=== PATIENT | female | born 1925 | race Caucasian/White ===

== ENCOUNTER → 2016-07-30 | Outpatient (CLI) | payer OTHER | LOC: BMCIMAGING 12:46 | PROVIDERS: ATTEND Internal Medicine | DX: Z12.31 Encounter for screening mammogram for malignant neoplasm of breast (principal); Z85.3 Personal history of malignant neoplasm of breast | CPT/HCPCS: G0202 ==

== ENCOUNTER → 2016-10-20 | Outpatient (CLI) | payer OTHER | LOC: BMCIMAGING 13:54 | PROVIDERS: ATTEND Internal Medicine Endocrinology, Diabetes & Metabolism | DX: Z13.820 Encounter for screening for osteoporosis (principal); M81.0 Age-related osteoporosis without current pathological fracture; E21.3 Hyperparathyroidism, unspecified ==

== ENCOUNTER 2017-07-20 11:24 | Emergency (ER) | payer OTHER ==
[2017-07-20 12:28] LABS: PLATELET COUNT 208 10^3/uL (150-400)
[2017-07-20] MEDS ORDERED: NS 1,000 ML IV ONE (12:53)
[2017-07-20] MEDS ORDERED: FAMOTIDINE 20 MG/NACL 50 ML IV ONE (12:53)
--- NOTE | 2017-07-20 12:57 | EDPHY ---
H & P Stated Complaint: blood in stool Time Seen by Provider: 07/20/17 12:47 HPI/ROS: CHIEF COMPLAINT: Rectal bleed HISTORY OF PRESENT ILLNESS: Patient is an 89-year-old female who comes to the emergency department complaining of bright red blood per rectum today. She states that she had something similar last week when she was in [place]. She has a history of irritable bowel as well as a normal colonoscopy in 2011. Her gastrologist has since retired. She states that last week when she was in [place] she got out of the car because she thought she had diarrhea and. She felt lightheaded and fainted. She was taken the hospital and found to have a GI bleed with a hemoglobin of 9. They were making plans for colonoscopy but then she states her hemoglobin improved and she was allowed to go home. She did not receive transfusions. She has felt well until today which she noticed watery red stool again. She has no history of hemorrhoids or ulcers. She does not drink heavily. No vomiting or nausea or abdominal pain. No fevers. REVIEW OF SYSTEMS: Constitutional: denies: chills, fever, recent illness, recent injury EENTM: denies: blurred vision, double vision, nose congestion Respiratory: denies: cough, shortness of breath Cardiac: denies: chest pain, irregular heart rate, lightheadedness, palpitations Gastrointestinal/Abdominal: See HPI Genitourinary: denies: dysuria, frequency, hematuria, pain Musculoskeletal: denies: joint pain, muscle pain Skin: denies: lesions, rash, jaundice, bruising Neurological: denies: headache, numbness, paresthesia, tingling, dizziness, weakness Hematologic/Lymphatic: denies: blood clots, easy bleeding, easy bruising Immunologic/allergic: denies: HIV/AIDS, transplant EXAM: GENERAL: Well-appearing, well-nourished and in no acute distress. HEAD: Atraumatic, normocephalic. EYES: Pupils equal round and reactive to light, extraocular movements intact, sclera anicteric, conjunctiva are normal. ENT: TMs normal, nares patent, oropharynx clear without exudates. Moist mucous membranes. NECK: Normal range of motion, supple without lymphadenopathy or JVD. LUNGS: Breath sounds clear to auscultation bilaterally and equal. No wheezes rales or rhonchi. HEART: Regular rate and rhythm without murmurs, rubs or gallops. ABDOMEN: Soft, nontender, normoactive bowel sounds. No guarding, no rebound. No masses appreciated. Rectal: Brown stool on digital exam, small hemorrhoid versus skin tag at 12 o' clock not bleeding. Not tender. BACK: No CVA tenderness, no spinal tenderness, step-offs or deformities EXTREMITIES: Normal range of motion, no pitting or edema. No clubbing or cyanosis. NEUROLOGICAL: Cranial nerves II through XII grossly intact. Normal speech, normal gait. 5/5 strength, normal movement in all extremities, normal sensation PSYCH: Normal mood, normal affect. SKIN: Warm, dry, normal turgor, no visible rashes or lesions. Source: Patient Exam Limitations: No limitations - Medical/Surgical History Hx Asthma: No Hx Chronic Respiratory Disease: No Hx Diabetes: No Hx Cardiac Disease: No Hx Renal Disease: Yes Hx Cirrhosis: No Hx Alcoholism: No Hx HIV/AIDS: No Other PMH: tonsilectomy, 5 R knee operations, Bladder, Hysterectomy/oophorectomy , cataracts both eyes, R breast lumpectomy, total hip, L breast partial mastectomy, basal cell carcinoma. - Family History Significant Family History: No pertinent family hx - Social History Smoking Status: Never smoked Alcohol Use: Sober Drug Use: None Constitutional: Initial Vital Signs Temperature (C) 36.8 C 07/20/17 11:46 Heart Rate 78 07/20/17 11:46 Respiratory Rate 18 07/20/17 11:46 Blood Pressure 165/89 H 07/20/17 11:46 O2 Sat (%) 95 07/20/17 11:46 O2 Delivery Mode Room Air Allergies/Adverse Reactions: No Known Allergies Allergy (Unverified 07/20/17 11:45) Home Medications: Medication Instructions Recorded Hydrocodone Bit/Acetaminophen 1 - 2 tab PO Q4-6PRN PRN #11 tab 06/18/11 [Vicodin 5/500] Oxybutynin Chloride [Oxybutynin 10 mg PO 06/18/11 Chloride Er] oxyCODONE/APAP 5/325 [Percocet 1 - 2 tab PO Q4-6PRN PRN #15 tab 06/19/11 5/325] Famotidine [Pepcid 20 MG (OTC)] 20 mg PO BID #30 tab 07/20/17 Folic Acid 07/20/17 Fosamax 70 MG (*) 07/20/17 Lisinopril 07/20/17 Medical Decision Making ED Course/Re-evaluation: 1:40 p.m. the patient is feeling well. We discussed her lab work. Her Hemoccult is negative. Her vital signs have been stable. I offered admission and possibly colonoscopy but at this point she declined. Her hemoglobin she states is improved from a week ago. She would prefer to follow up as an outpatient. I agree that considering her current appearance this is a viable option. I encouraged her to return to the emergency department if the bleeding returned or if she began vomiting blood or had any black stool. She understands and agrees with this plan. Differential Diagnosis: Partial list of the Differential diagnosis considered include but were not limited to; hemorrhoid, lower GI bleed, upper GI bleed, anemia and although unlikely based on the history and physical exam, I also considered hemorrhage, cardiac disease, cancer. I discussed these differential diagnoses and the plan with the patient as well as the usual and expected course. The patient understands that the diagnosis is provisional and that in medicine we are not always correct and that further workup is often warranted. Usual and customary warnings were given. All of the patient's questions were answered. The patient was instructed to return to the emergency department should the symptoms at all worsen or return, otherwise to followup with the physician as we discussed. - Data Points Laboratory Results: Laboratory Results 07/20/17 12:00 07/20/17 12:00 07/20/17 07/20/17 07/20/17 12:57 12:00 12:00 WBC RBC Hgb Hct MCV MCH MCHC RDW Plt Count MPV Neut % (Auto) Lymph % (Auto) Throckmorton % (Auto) Eos % (Auto) Baso % (Auto) Nucleat RBC Rel Count Absolute Neuts (auto) Absolute Lymphs (auto) Absolute Monos (auto) Absolute Eos (auto) Absolute Basos (auto) Absolute Nucleated RBC Immature Gran % Immature Gran # PT 13.1 SEC SEC (12.0-15.0) INR 0.97 (0.83-1.16) APTT 25.3 SEC SEC (23.0-38.0) Sodium Potassium Chloride Carbon Dioxide Anion Gap BUN Creatinine Estimated GFR Glucose Calcium Total Bilirubin 0.4 mg/dL mg/dL (0.1-1.4) Conjugated Bilirubin 0.4 mg/dL mg/dL (0.0-0.5) Unconjugated Bilirubin 0.0 mg/dL mg/dL (0.0-1.1) AST 30 IU/L IU/L (14-46) ALT 38 IU/L IU/L (9-52) Alkaline Phosphatase 48 IU/L IU/L (38-126) Total Protein 6.8 g/dL g/dL (6.3-8.2) Albumin 4.1 g/dL g/dL (3.5-5.0) Lipase 153 IU/L IU/L (23-300) Stool Occult Bld Scrn NEGATIVE (NEGATIVE) 07/20/17 07/20/17 12:00 12:00 WBC 6.65 10^3/uL 10^3/uL (3.80-9.50) RBC 3.59 10^6/uL L 10^6/uL (4.18-5.33) Hgb 10.8 g/dL L g/dL (12.6-16.3) Hct 32.8 % L % (38.0-47.0) MCV 91.4 fL fL (81.5-99.8) MCH 30.1 pg pg (27.9-34.1) MCHC 32.9 g/dL g/dL (32.4-36.7) RDW 12.8 % % (11.5-15.2) Plt Count 208 10^3/uL 10^3/uL (150-400) MPV 9.5 fL fL (8.7-11.7) Neut % (Auto) 71.4 % % (39.3-74.2) Lymph % (Auto) 14.4 % L % (15.0-45.0) Throckmorton % (Auto) 9.3 % % (4.5-13.0) Eos % (Auto) 3.2 % % (0.6-7.6) Baso % (Auto) 0.5 % % (0.3-1.7) Nucleat RBC Rel Count 0.0 % % (0.0-0.2) Absolute Neuts (auto) 4.75 10^3/uL 10^3/uL (1.70-6.50) Absolute Lymphs (auto) 0.96 10^3/uL L 10^3/uL (1.00-3.00) Absolute Monos (auto) 0.62 10^3/uL 10^3/uL (0.30-0.80) Absolute Eos (auto) 0.21 10^3/uL 10^3/uL (0.03-0.40) Absolute Basos (auto) 0.03 10^3/uL 10^3/uL (0.02-0.10) Absolute Nucleated RBC 0.00 10^3/uL 10^3/uL (0-0.01) Immature Gran % 1.2 % H % (0.0-1.1) Immature Gran # 0.08 10^3/uL 10^3/uL (0.00-0.10) PT INR APTT Sodium 143 mEq/L mEq/L (135-145) Potassium 4.7 mEq/L mEq/L (3.3-5.0) Chloride 108 mEq/L mEq/L (97-110) Carbon Dioxide 21 mEq/l L mEq/l (22-31) Anion Gap 14 mEq/L mEq/L (8-16) BUN 16 mg/dL mg/dL (7-23) Creatinine 1.0 mg/dL mg/dL (0.6-1.0) Estimated GFR 52 Glucose 94 mg/dL mg/dL (70-100) Calcium 10.3 mg/dL mg/dL (8.5-10.4) Total Bilirubin 0.4 mg/dL mg/dL (0.1-1.4) Conjugated Bilirubin Unconjugated Bilirubin AST 30 IU/L IU/L (14-46) ALT 47 IU/L IU/L (9-52) Alkaline Phosphatase 49 IU/L IU/L (38-126) Total Protein 6.8 g/dL g/dL (6.3-8.2) Albumin 4.1 g/dL g/dL (3.5-5.0) Lipase Stool Occult Bld Scrn Medications Given: Discontinued Medications Sodium Chloride (Ns) 1,000 mls @ 0 mls/hr IV EDNOW ONE; Wide Open PRN Reason: Protocol Stop: 07/20/17 12:54 Last Admin: 07/20/17 12:59 Dose: 1,000 mls Famotidine/Sodium Chloride (Pepcid 20 Mg (Premix)) 50 mls @ 200 mls/hr IV EDNOW ONE Stop: 07/20/17 13:07 Last Admin: 07/20/17 13:00 Dose: 50 mls Departure - Departure Disposition: Home, Routine, Self-Care Clinical Impression: Bright red blood per rectum Anemia Qualifiers: Anemia type: unspecified type Qualified Code(s): D64.9 - Anemia, unspecified Condition: Fair Instructions: Gastrointestinal Bleeding (ED), Anemia (ED) Referrals: Kerline Pastor MD [Primary Care Provider] - As per Instructions Avery Saleh MD [Medical Doctor] - As per Instructions Prescriptions: Famotidine [Pepcid 20 MG (OTC)] 20 mg PO BID #30 tab
[2017-07-20 13:11] LABS: INR 0.97 (0.83-1.16); PROTIME(PATIENT) 13.1 SEC (12.0-15.0)
[2017-07-20 14:16] VITALS: BP 168/80
== END 2017-07-20 14:24 | disposition home or self-care (01) ==
DX: K62.5 Hemorrhage of anus and rectum (principal); D64.9 Anemia, unspecified; E86.9 Volume depletion, unspecified
CPT/HCPCS: 96374

== ENCOUNTER → 2017-08-02 | Outpatient (CLI) | payer OTHER | LOC: BMCIMAGING 14:53 | PROVIDERS: ATTEND Internal Medicine | DX: Z12.31 Encounter for screening mammogram for malignant neoplasm of breast (principal); Z85.3 Personal history of malignant neoplasm of breast ==

== ENCOUNTER 2017-08-24 01:51 | Inpatient (IN) | payer OTHER ==
[2017-08-24] MEDS ORDERED: DEXAMETHASONE 10 MG/ML VIAL IVP ONE (02:32)
--- NOTE | 2017-08-24 02:48 | EDPHY ---
H & P Stated Complaint: allergic reaction to meds- blisters on tongue, petechia on stephanie legs Time Seen by Provider: 08/24/17 02:13 HPI/ROS: HPI The patient presents with oral mucosal rash and rash on her legs. She started taking Bactrim for urinary tract infection 2 days ago and has taken a total of 3 doses. Yesterday at noon she noticed some pain on her right buccal mucosa. She thought she may have bit her tongue, however she has developed multiple other oral lesions since then which are painful. Then, while lying in bed, she noticed a rash on her shins which is nonpainful and non. Arnold. She decided to come in. She does not have any shortness of breath, difficulty swallowing.. REVIEW OF SYSTEMS Constitutional: No fever, no chills. Eyes: No discharge. ENT: No sore throat. Cardiovascular: No chest pain, no palpitations. Respiratory: No cough, no shortness of breath. Gastrointestinal: No abdominal pain, no vomiting. Genitourinary: No hematuria. Musculoskeletal: No back pain. Skin: No rashes. Neurological: No headache. PMHx: Urinary tract infection currently Soc Hx: Here with her PHYSICAL General Appearance: Alert, no distress Eyes: Pupils equal and round no pallor or injection ENT, Mouth: Multiple dark red bullae are present with no active bleeding throughout her oral mucosa, posterior pharynx is unremarkable Respiratory: There are no retractions, lungs are clear to auscultation Cardiovascular: Regular rate and rhythm Gastrointestinal: Abdomen is soft and non-tender, no masses, bowel sounds normal Neurological: A&O, moves all extremities Skin: Warm and dry, petechiae present throughout her shins Musculoskeletal: Neck is supple non tender Extremities: symmetrical, full range of motion Psychiatric: Patient is oriented X 3, there is no agitation Source: Patient Exam Limitations: No limitations - Medical/Surgical History Hx Asthma: No Hx Chronic Respiratory Disease: No Hx Diabetes: No Hx Cardiac Disease: No Hx Renal Disease: Yes Hx Cirrhosis: No Hx Alcoholism: No Hx HIV/AIDS: No Other PMH: tonsilectomy, 5 R knee operations, Bladder, Hysterectomy/oophorectomy , cataracts both eyes, R breast lumpectomy, total hip, L breast partial mastectomy, basal cell carcinoma. - Social History Smoking Status: Never smoked Constitutional: Initial Vital Signs Temperature (C) 36.4 C 06/20/18 01:55 Heart Rate 73 08/24/17 01:55 Respiratory Rate 20 08/24/17 01:55 Blood Pressure 135/56 H 08/24/17 01:55 O2 Sat (%) 98 08/24/17 01:55 Allergies/Adverse Reactions: No Known Allergies Allergy (Unverified 08/24/17 01:54) Home Medications: Medication Instructions Recorded Hydrocodone Bit/Acetaminophen 1 - 2 tab PO Q4-6PRN PRN #11 tab 06/18/11 [Vicodin 5/500] Oxybutynin Chloride [Oxybutynin 10 mg PO 06/18/11 Chloride Er] oxyCODONE/APAP 5/325 [Percocet 1 - 2 tab PO Q4-6PRN PRN #15 tab 06/19/11 5/325] Famotidine [Pepcid 20 MG (OTC)] 20 mg PO BID #30 tab 07/20/17 Folic Acid 07/20/17 Fosamax 70 MG (*) 07/20/17 Lisinopril 07/20/17 Medical Decision Making Differential Diagnosis: 89-year-old female currently being treated for UTI with Bactrim for the last 1.5 days presents with oral mucosal lesions as well as petechiae of her lower extremities. Differential diagnosis includes drug-induced ITP, erythema multiforme, Kang- Ernesto syndrome, secondary vasculitis related to Bactrim use. In the emergency department, patient given a dose of Decadron for presumed erythema multiforme. Labs are checked. 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 The patient does not have any signs of serious bleeding such is abdominal pain, headache, melena. Thus, I do not believe she needs a platelet transfusion currently. However, given rapid onset of her symptoms, and severity of her thrombocytopenia, I do feel she should be admitted to the hospital. I consulted with Dr. Valencia and we plan to admit the patient to the hospital. I consulted with the on-call nutrition services aide oncologist Dr. Morgan. He recommends prednisone 1 milligram/kilogram and initiation of IVIG 400 milligrams/kilogram. The patient was given Decadron earlier in her ED stay 10 mg, thus I will not start her on prednisone right now. IVIG has been ordered. - Data Points Laboratory Results: Laboratory Results 08/24/17 02:46 08/24/17 02:46 08/24/17 08/24/17 08/24/17 03:40 02:46 02:46 WBC 5.03 10^3/uL 10^3/uL (3.80-9.50) RBC 3.37 10^6/uL L 10^6/uL (4.18-5.33) Hgb 10.2 g/dL L g/dL (12.6-16.3) Hct 31.7 % L % (38.0-47.0) MCV 94.1 fL fL (81.5-99.8) MCH 30.3 pg pg (27.9-34.1) MCHC 32.2 g/dL L g/dL (32.4-36.7) RDW 13.1 % % (11.5-15.2) Plt Count < 3 10^3/uL L* 10^3/uL (150-400) MPV 14.2 fL H fL (8.7-11.7) Neut % (Auto) 72.4 % % (39.3-74.2) Lymph % (Auto) 14.3 % L % (15.0-45.0) Perkins % (Auto) 9.7 % % (4.5-13.0) Eos % (Auto) 2.8 % % (0.6-7.6) Baso % (Auto) 0.6 % % (0.3-1.7) Nucleat RBC Rel Count 0.0 % % (0.0-0.2) Absolute Neuts (auto) 3.64 10^3/uL 10^3/uL (1.70-6.50) Absolute Lymphs (auto) 0.72 10^3/uL L 10^3/uL (1.00-3.00) Absolute Monos (auto) 0.49 10^3/uL 10^3/uL (0.30-0.80) Absolute Eos (auto) 0.14 10^3/uL 10^3/uL (0.03-0.40) Absolute Basos (auto) 0.03 10^3/uL 10^3/uL (0.02-0.10) Absolute Nucleated RBC 0.00 10^3/uL 10^3/uL (0-0.01) Immature Gran % 0.2 % % (0.0-1.1) Immature Gran # 0.01 10^3/uL 10^3/uL (0.00-0.10) Platelet Estimate DECREASED L (ADEQ) Smear Review By Pending Sodium 141 mEq/L mEq/L (135-145) Potassium 4.4 mEq/L mEq/L (3.3-5.0) Chloride 108 mEq/L mEq/L (97-110) Carbon Dioxide 19 mEq/l L mEq/l (22-31) Anion Gap 14 mEq/L mEq/L (8-16) BUN 29 mg/dL H mg/dL (7-23) Creatinine 1.4 mg/dL H mg/dL (0.6-1.0) Estimated GFR 35 Glucose 102 mg/dL H mg/dL (70-100) Calcium 10.0 mg/dL mg/dL (8.5-10.4) Total Bilirubin 0.4 mg/dL mg/dL (0.1-1.4) AST 26 IU/L IU/L (14-46) ALT 33 IU/L IU/L (9-52) Alkaline Phosphatase 48 IU/L IU/L (38-126) Total Protein 6.5 g/dL g/dL (6.3-8.2) Albumin 3.9 g/dL g/dL (3.5-5.0) Patient ABO/Rh A NEGATIVE Antibody Screen NEGATIVE Medications Given: Acetaminophen (Tylenol) 500 mg PO .ONCE PRE INFUSION OLIVER Stop: 02/20/18 04:14 Last Admin: 08/24/17 04:32 Dose: 500 mg Discontinued Medications Dexamethasone (Decadron Injection) 10 mg IVP EDNOW ONE Stop: 08/24/17 02:33 Last Admin: 08/24/17 02:44 Dose: 10 mg Immune Globulin (Privigen 20 Gm) 20 gm IV .ONCE AFTER PREMEDS ONE PRN Reason: Protocol Stop: 08/24/17 05:01 Last Admin: 08/24/17 05:30 Dose: 20 gm Departure - Departure Disposition: [facility] Inpatient Acute Clinical Impression: Thrombocytopenia, Petechiae, Oral hemorrhage Condition: Fair
[2017-08-24 03:28] LABS: PLATELET COUNT < 3 10^3/uL (150-400)
[2017-08-24] MEDS ORDERED: ONDANSETRON 4 MG/2 ML VIAL IVP PRN (03:48)
[2017-08-24] MEDS ORDERED: ONDANSETRON DISINTEGRATING 4 MG TAB PO PRN (03:48)
[2017-08-24] MEDS ORDERED: ACETAMINOPHEN 325 MG TAB PO PRN (03:48)
--- NOTE | 2017-08-24 04:08 | PDGENHP ---
History and Physical - Chief Complaint Petechiae - History of Present Illness 89 yo F w/ HTN and IBS presents with oral and lower extremity lesions. Patient has been under treatment for a UTI for more than a week. She was initially treated with Macrobid. She felt somewhat better but her infection was not cleared up. As a result she was started on Bactrim 2 days ago. This evening she noted blister like lesions in her mouth that appear to be blood filled. She then noted extensive petechiae on her LE's and came to the ED. In the ED CBC was notable for undetectable platelet count. She is being admitted for presumed drug induced thrombocytopenia. History Information - Allergies/Home Medication List Allergies/Adverse Reactions: No Known Allergies Allergy (Unverified 08/24/17 01:54) Home Medications: Oxybutynin Chloride [Oxybutynin Chloride Er] 10 mg PO 06/18/11 [Last Taken Unknown] Folic Acid 07/20/17 [Last Taken Unknown] Fosamax 70 MG (*) 07/20/17 [Last Taken Unknown] Lisinopril 07/20/17 [Last Taken Unknown] I have personally reviewed and updated: family history, medical history - Past Medical History hypertension Additional medical history: IBS - Surgical History Reports: hysterectomy Additional surgical history: B/L TKA. R DAVE - Family History Additional family history: Denies family hx of blood disorders - Social History Smoking Status: Never smoked Review of Systems Review of Systems: ROS: 10pt was reviewed & negative except for what was stated in HPI & below Physical Exam Physical Exam: Temp Pulse Resp BP Pulse Ox 36.4 C 80 16 152/72 H 94 08/24/17 01:58 08/24/17 03:58 08/24/17 03:58 08/24/17 03:58 08/24/17 03:58 Constitutional: no apparent distress, not in pain Eyes: PERRL, EOMI Ears, Nose, Mouth, Throat: moist mucous membranes, other (Blister like, blood filled/clot lesions on oral bucosa) Cardiovascular: regular rate and rhythym, no murmur, rub, or gallop Respiratory: no respiratory distress, no rales or rhonchi Gastrointestinal: normoactive bowel sounds, soft, non-tender abdomen Skin: warm, normal color Musculoskeletal: full muscle strength, no muscle tenderness Neurologic: AAOx3, CN II-XII Intact Psychiatric: interacting appropriately, not anxious Lab Data & Imaging Review 08/24/17 02:46 08/24/17 02:46 WBC 5.03 10^3/uL (3.80-9.50) 08/24/17 02:46 RBC 3.37 10^6/uL (4.18-5.33) L 08/24/17 02:46 Hgb 10.2 g/dL (12.6-16.3) L 08/24/17 02:46 Hct 31.7 % (38.0-47.0) L 08/24/17 02:46 MCV 94.1 fL (81.5-99.8) 08/24/17 02:46 MCH 30.3 pg (27.9-34.1) 08/24/17 02:46 MCHC 32.2 g/dL (32.4-36.7) L 08/24/17 02:46 RDW 13.1 % (11.5-15.2) 08/24/17 02:46 Plt Count < 3 10^3/uL (150-400) L* 08/24/17 02:46 MPV 14.2 fL (8.7-11.7) H 08/24/17 02:46 Neut % (Auto) 72.4 % (39.3-74.2) 08/24/17 02:46 Lymph % (Auto) 14.3 % (15.0-45.0) L 08/24/17 02:46 Cook % (Auto) 9.7 % (4.5-13.0) 08/24/17 02:46 Eos % (Auto) 2.8 % (0.6-7.6) 08/24/17 02:46 Baso % (Auto) 0.6 % (0.3-1.7) 08/24/17 02:46 Nucleat RBC Rel Count 0.0 % (0.0-0.2) 08/24/17 02:46 Absolute Neuts (auto) 3.64 10^3/uL (1.70-6.50) 08/24/17 02:46 Absolute Lymphs (auto) 0.72 10^3/uL (1.00-3.00) L 08/24/17 02:46 Absolute Monos (auto) 0.49 10^3/uL (0.30-0.80) 08/24/17 02:46 Absolute Eos (auto) 0.14 10^3/uL (0.03-0.40) 08/24/17 02:46 Absolute Basos (auto) 0.03 10^3/uL (0.02-0.10) 08/24/17 02:46 Absolute Nucleated RBC 0.00 10^3/uL (0-0.01) 08/24/17 02:46 Immature Gran % 0.2 % (0.0-1.1) 08/24/17 02:46 Immature Gran # 0.01 10^3/uL (0.00-0.10) 08/24/17 02:46 Platelet Estimate DECREASED (ADEQ) L 08/24/17 02:46 Sodium 141 mEq/L (135-145) 08/24/17 02:46 Potassium 4.4 mEq/L (3.3-5.0) 08/24/17 02:46 Chloride 108 mEq/L (97-110) 08/24/17 02:46 Carbon Dioxide 19 mEq/l (22-31) L 08/24/17 02:46 Anion Gap 14 mEq/L (8-16) 08/24/17 02:46 BUN 29 mg/dL (7-23) H 08/24/17 02:46 Creatinine 1.4 mg/dL (0.6-1.0) H 08/24/17 02:46 Estimated GFR 35 08/24/17 02:46 Glucose 102 mg/dL (70-100) H 08/24/17 02:46 Calcium 10.0 mg/dL (8.5-10.4) 08/24/17 02:46 Total Bilirubin 0.4 mg/dL (0.1-1.4) 08/24/17 02:46 AST 26 IU/L (14-46) 08/24/17 02:46 ALT 33 IU/L (9-52) 08/24/17 02:46 Alkaline Phosphatase 48 IU/L (38-126) 08/24/17 02:46 Total Protein 6.5 g/dL (6.3-8.2) 08/24/17 02:46 Albumin 3.9 g/dL (3.5-5.0) 08/24/17 02:46 Assessment & Plan Assessment: 89 yo F w/ HTN and IBS p/w profound thrombocytopenia a few days after starting Bactrim. Plan: 1. Thrombocytopenia - Acute, presumed drug induced from Bactrim therapy. Severe currently with undetectable platelet count on admission. Interestingly she has only been on Bactrim for 3 total doses and denies any prior exposure to Bactrim. She has oral mucosa lesions and extensive LE petechiae currently, hemodynamically stable and doing well otherwise. - Hold Bactrim - Hematology consulted noting severity of thrombocytopenia: recommending IVIG and no platelet transfusions at this time - S/p dexamethasone 10 mg IV x1 in ED - Discussed case with Dr. Sol 2. Anemia - Hgb 10.2 on admission, fairly close to recent value of 11.5. - Will repeat CBC in a few hours to establish trend 3. HTN - Continue home medications 4. CKD - Serum Cr 1.4 on admission, 1.3 on most recent labs w/ PCP. - Renally dose medications - Avoid nephrotoxic agents Diet - Regular Code - Full Ppx - SCDs Dispo - Admit under observation status
[2017-08-24] MEDS ORDERED: ACETAMINOPHEN 500 MG TAB PO SCH (04:15)
[2017-08-24] MEDS ORDERED: IMMUNE GLOBULIN 20 GM/200 ML VIAL IV SCH (04:15)
[2017-08-24] MEDS ORDERED: IMMUNE GLOBULIN 20 GM/200 ML VIAL IV ONE (05:00)
[2017-08-24 07:49] LABS: PLATELET COUNT < 3 10^3/uL (150-400)
[2017-08-24] MEDS ORDERED: TETRAHYDROZOLINE 0.05% 15 ML OPHT.BTL EACHEYE PRN (10:57)
--- NOTE | 2017-08-24 10:59 | HOSPPROG ---
Hospitalist Progress Note Assessment/Plan: Patient is an 89 y/o female who was getting treatment for a UTI. Initially treated w Macrobid but didn't feel better. She was started on Bactrim recently and noted she had blister lesion in her mouth. Today is my first encounter w the patient, chart reviewed. 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 Objective: Vital Signs Temp Pulse Resp BP Pulse Ox 36.8 C 116 H 18 122/64 H 95 08/24/17 08:00 08/24/17 09:20 08/24/17 09:20 08/24/17 09:20 08/24/17 09:20 Laboratory Results 08/24/17 07:25 08/24/17 07:25 - Physical Exam Constitutional: appears nourished, not in pain, chronically ill appearing Eyes: PERRL Ears, Nose, Mouth, Throat: hearing normal, other (mouth w multiple purple lesions buccal mucosa) Cardiovascular: regular rate and rhythym, systolic murmur Respiratory: no respiratory distress Gastrointestinal: normoactive bowel sounds Skin: warm, other (scattered significant amount of petechiae covering both lower extremities/ ankles and escobar area) Musculoskeletal: full muscle strength Neurologic: AAOx3 Psychiatric: interacting appropriately ICD10 Worksheet Patient Problems: Problems Problem Status Onset Oral hemorrhage Acute Petechiae Acute Thrombocytopenia Acute
[2017-08-24] MEDS: predniSONE 20 MG TAB PO SCH (12:19)
--- NOTE | 2017-08-24 12:23 | ASMTCMCOM ---
CM Note CM Note Notes: 08/24/2017 Case Management Note Pt admitted for treatment of drug induced thrombocytopenia. Met w/pt to discuss discharge needs. Pt lives independently with Jose [phone], (cell) in thier own home. They have hired a automatic buffing wheel former to come once a week but otherwise maintain the home themselves. Both pt and her are still driving. Pt daughter Suki [phone] lives within [address] of pt[address] There are no PT or OT evals ordered at this time. Case Management d/c poc: anticipating independent with follow up as directed. Case Management available if needs change. Date Signed: 08/24/2017 12:23 PM Electronically Signed By:Kathy Kaur RN
--- NOTE | 2017-08-24 17:44 | GCON ---
[f rep st] CONSULTATION MEDICAL ONCOLOGY/HEMATOLOGY FOLLOWUP CONSULTATION. DATE OF CONSULTATION: 08/24/2017 REFERRING PHYSICIAN: Starr Nuñez NP REASON FOR CONSULTATION: Management of newly diagnosed idiopathic thrombocytopenic purpura, as well as history of breast cancer. PRIMARY ONCOLOGIST: Dr. Leon Puckett. RECOMMENDATIONS: 1. Agree with instituting prednisone 1 mg/kg by mouth daily. 2. Agree with intravenous gammaglobulin therapy 400 mg/kg daily for 5 days or until her platelet cou nt reaches 30,000 or greater. 3. Bedrest for now, except for a bit of assistance to the bathroom. 4. I would not give platelet transfusions at this time since she is at high risk for a platelet reac tion. 5. The patient's breast cancer is not clinically evident at this time. ASSESSMENT: This 89-year-old woman who is cared for by my partner, Dr. Leon Puckett, for breast [facility] er, is now admitted with submucosal hemorrhages and petechiae, as well as a platelet count of less th an 3000. Approximately 1 month ago, she developed symptoms of ischemic bowel. This was while she wa s traveling. She spent 3 days in the hospital. She has not felt well since then. Apparently over t he last week, she developed symptoms of urinary tract infection. She was placed on Bactrim. Approxi mately 24 hours after that, she developed a submucosal hemorrhages and petechiae in her lower extremi ties and abdomen. She sought medical attention and was found have a platelet count of less than 3000 in the emergency room. Her white count was at 5.03 on admission with a hemoglobin of 10.2 and an MC V of 94. Her hemoglobin tends to run approximately 10. Her usual platelet count is approximately 18 0,000. She has had no episodes like this before. I think the most likely diagnosis is idiopathic thrombocytopenic purpura related to either her recent infection or antibiotics. Her Bactrim has been discontinued. She does not currently have life-thre atening hemorrhage. The general plan for initial therapy, includes initiation of prednisone and gammaglobulin. The gamma globulin will usually temporarily help the platelet count starting in a few days and last for 1 to 2 weeks. She has also started concurrently on prednisone, which typically will become active in 1-2 we eks and is typically the primary management for acute thrombocytopenia like this. She will be tapere d down gradually, and in approximately half the cases of acute idiopathic thrombocytopenic purpura, t here will not be recurrence. If the patient does become chronic as far as her ITP is concerned, ther e are a variety of treatment can be instituted including not limited to Rituxan and Nplate. Removal of the spleen is very rare with currently available medications. HISTORY OF PRESENT ILLNESS: Please see assessment. PAST MEDICAL HISTORY: Remarkable for irritable bowel syndrome, which has been an ongoing issue for h er. She has had at least 2 episodes of ischemic bowel also. 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 This was treated with surgi katherine excision alone. In February of 2007, she was diagnosed with infiltrating ductal carcinoma, T1b N 0, M0, stage I. This was treated with external beam radiation. The patient also took 5 years of froylan strozole therapy. She has had no evidence recurrence of her breast cancer at this time. PAST SURGICAL HISTORY: Remarkable for right knee replacement in March of 2014. She has also had t otal abdominal hysterectomy and bilateral salpingo-oophorectomy in 2001. She has also had the above- mentioned bilateral breast surgery. FAMILY HISTORY: The patient does not report any history of malignancy or hematologic disorders in he r first-degree relative. SOCIAL HISTORY: The patient is . She has 2 children. 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. REVIEW OF SYSTEMS: Remarkable for submucosal hemorrhages in her mouth, multiple punctate nonblanchin g erythematous lesions on her torso and lower extremities, and intermittent diarrhea associated with her irritable bowel syndrome. Her review is otherwise unremarkable. PHYSICAL EXAMINATION: GENERAL: Shows an alert, articulate woman in mild distress as far as her subm ucosal hemorrhages are concerned in her mouth. HEENT: She has no evidence of subconjunctival hemorr hages. Her mouth shows submucosal hemorrhages on her lips as expected. LUNGS: Clear to auscultatio n. CARDIAC: Regular rhythm. ABDOMEN: No hepatosplenomegaly. She has normal bowel sounds and a so ft abdomen. There is no tenderness noted. LOWER EXTREMITIES: Multiple petechiae with confluent pet echiae on her distal lower extremities. LABORATORY DATA: Her CBC on admission showed a white count of 5.03 with a hemoglobin 10.2, an MCV of 94.1, and a platelet count less than 3000. Her absolute neutrophil count was normal at 3640. Her l ymphocytes are slightly low at 720. Thank you very much for allowing us to participate in this pleasant woman's hematologic and oncologic care. We look forward to assisting with her management during this hospitalization and beyond. /[id number]/MODL
[2017-08-24 19:41] LABS: HEPATITIS A ANTIBODY IGM (BCH) NEGATIVE (NEGATIVE); HEPATITIS B CORE AB IGM NEGATIVE (NEGATIVE); HEPATITIS B SURFACE ANTIGEN NEGATIVE (NEGATIVE)
[2017-08-24 20:03] LABS: HEPATITIS C ANTIBODY TOTAL NEGATIVE (NEGATIVE)
[2017-08-25] MEDS: ACETAMINOPHEN 500 MG TAB PO SCH (04:35)
[2017-08-25] MEDS: diphenhydrAMINE 25 MG CAP PO SCH (04:36)
[2017-08-25 05:59] LABS: PLATELET COUNT 10 10^3/uL (150-400)
[2017-08-25] MEDS: IMMUNE GLOBULIN 20 GM/200 ML VIAL IV SCH (06:02)
[2017-08-25] MEDS: IMMUNE GLOBULIN IV SCH (06:02)
[2017-08-25] MEDS ORDERED: LISINOPRIL 5 MG TAB PO SCH (09:00)
--- NOTE | 2017-08-25 09:59 | PDMN ---
Medical Necessity Medical necessity: Change to IP, as of 08/24/17, per PEARL CUTTER; los >2 mn for ongoing management of thrombocytopenia/ITP w/significant oral purpura & petechiae; pt at risk of bleeding due to low platelets; admit for further monitoring, Hematology consult & IVIG x5 days; hx HTN; per progress note & order 08/24/17
[2017-08-25] MEDS: predniSONE 20 MG TAB PO SCH (10:00)
--- NOTE | 2017-08-25 11:14 | SOAPPROG ---
SOAP Progress Note Assessment/Plan: Assessment: - ITP - oral hemorrhages have resolved. Petechia on legs are about the same. No gross bleeding. Tolerating Prednisone/IVIG well so far. Plts up to 10K today. Target is >=30k prior to discharge - Hx breast CA x 2. Non contributory to this admission Plan: - Continue prednisone at 60mg/day PO - Continue IvIg Patient would like to target discharge on or before Tuesday (family wedding in the evening) Subjective: No complaints. Mouth improving Objective: Vital Signs Temp Pulse Resp BP Pulse Ox 36.6 C 75 18 134/64 H 95 08/25/17 07:40 08/25/17 08:33 08/25/17 08:33 08/25/17 08:36 08/25/17 08:33 Laboratory Results 08/25/17 04:43 08/25/17 04:43 08/23/17 08/24/17 08/25/17 23:59 23:59 23:59 Intake Total 300 Balance 300 Physical Exam - Physical Exam General Appearance: alert, no apparent distress EENT: other (oral submucosal hemorrhages resolved.) Respiratory: lungs clear Cardiac/Chest: regular rate, rhythm Abdomen: non-tender, soft Skin: other (no change in petechia/purpura) Neuro/Psych: alert, normal mood/affect, oriented x 3 ICD10 Worksheet Patient Problems: Problems Problem Status Onset Oral hemorrhage Acute Petechiae Acute Thrombocytopenia Acute
[2017-08-25] MEDS: LOPERAMIDE HCL 2 MG CAP PO PRN ×2 (11:35→16:37)
--- NOTE | 2017-08-25 16:30 | HOSPPROG ---
Hospitalist Progress Note Assessment/Plan: * ITP - platelets improving -prednisone 60mg daily + IVIG -discharge when platelets > 30 * Recent UTI -reaction to Bactrim - now added as allergy * CKD -at baseline * HTN -holding ACEI * h/o breast cancer without recurrence Subjective: No new complaints Objective: Vital Signs Temp Pulse Resp BP Pulse Ox 37.0 C 83 17 140/72 H 94 08/25/17 15:18 08/25/17 15:18 08/25/17 15:18 08/25/17 15:18 08/25/17 15:18 Laboratory Results 08/25/17 04:43 08/25/17 04:43 08/24/17 08/25/17 08/26/17 05:59 05:59 05:59 Intake Total 300 Balance 300 d/w Dr. martin regarding treatment plan old chart reviewed - baseline creatinine about 1.2 - Physical Exam Constitutional: no apparent distress, appears nourished, not in pain Cardiovascular: regular rate and rhythym, no murmur, rub, or gallop Respiratory: no respiratory distress, no rales or rhonchi, clear to auscultation Gastrointestinal: normoactive bowel sounds, soft, non-tender abdomen, no palpable masses Skin: other (extensive LE petichia) Neurologic: AAOx3, sensation intact bilaterally Psychiatric: interacting appropriately, not anxious, not encephalopathic, thought process linear ICD10 Worksheet Patient Problems: Problems Problem Status Onset Oral hemorrhage Acute Petechiae Acute Thrombocytopenia Acute
[2017-08-26 05:43] LABS: PLATELET COUNT 37 10^3/uL (150-400)
[2017-08-26] MEDS: diphenhydrAMINE 25 MG CAP PO SCH (05:44)
[2017-08-26] MEDS: ACETAMINOPHEN 500 MG TAB PO SCH (05:44)
[2017-08-26] MEDS: IMMUNE GLOBULIN 20 GM/200 ML VIAL IV SCH (05:50)
[2017-08-26] MEDS: predniSONE 20 MG TAB PO SCH (08:43)
--- NOTE | 2017-08-26 08:57 | SOAPPROG ---
SOAP Progress Note Assessment/Plan: Assessment: - ITP - oral hemorrhages have resolved. Petechia on legs are about the same. No gross bleeding. Plts 37K today. She has some dyspepsia probably from the Prednisone. She will need a PPI - Hx breast CA x 2. Non contributory to this admission Plan: - Continue prednisone at 60mg/day PO - Add Protonix. Can substitute Prilosec 20mg/day PO in the outpatient setting if more cost effective. - D/C IVIG after today's dose - OK for D/C to home from [place] with close follow up in the office on Tuesday. Please make sure patient has an appointment with one of our APPs on that date. She will need a CBC then. Subjective: c/o some minor dyspepsia Objective: Vital Signs Temp Pulse Resp BP Pulse Ox 36.3 C 64 16 164/76 H 97 08/26/17 07:41 08/26/17 07:41 08/26/17 07:41 08/26/17 07:41 08/26/17 07:41 Laboratory Results 08/26/17 04:28 08/26/17 04:28 08/24/17 08/25/17 08/26/17 23:59 23:59 23:59 Intake Total 700 550 Output Total 800 Balance 700 -250 Physical Exam - Physical Exam General Appearance: alert, no apparent distress EENT: other (submucosal hemorrhages in mouth completely resolved) Skin: warm/dry, other (No new petechia/purpura) Neuro/Psych: alert, normal mood/affect, oriented x 3 ICD10 Worksheet Patient Problems: Problems Problem Status Onset Oral hemorrhage Acute Petechiae Acute Thrombocytopenia Acute
[2017-08-26] MEDS ORDERED: PANTOPRAZOLE SODIUM 40 MG TAB PO SCH (09:00)
[2017-08-26] MEDS ORDERED: OXYBUTYNIN 5 MG EXT REL TAB PO SCH (09:00)
[2017-08-26] MEDS: IMMUNE GLOBULIN IV SCH (09:55)
--- NOTE | 2017-08-26 11:09 | GDS ---
[f rep st] DISCHARGE SUMMARY DISCHARGE DIAGNOSES: 1. Idiopathic thrombocytopenic purpura. 2. Bactrim allergy. 3. Urinary tract infection. 4. Acute on chronic kidney disease. 5. Hypertension. 6. History of breast cancer without recurrence. HISTORY: The patient is an 89-year-old female who recently was treated for a urinary tract infection with Bactrim. Within days of starting the Bactrim, she developed hemorrhagic oral ulcerations and e ventually severe petechiae to her lower extremities. Platelets were found to be 3000. She has been diagnosed with ITP. Hematology consulted and started her on IVIG and prednisone. Her platelets have rapidly improved. They are up to 37,000 today, and she has been cleared by Dr. Morgan for discharg e. She will continue on prednisone 60 mg p.o. daily until further instructions by Hematology. She also presented with some creatinine elevation her JASPER inhibitor was held. Her creatinine has com e down. It is actually better than her baseline. Perhaps lisinopril is not the best drug for her fo r hypertension. I will change her to Norvasc 2.5 mg p.o. daily. DISCHARGE MEDICATIONS: Please see computerized record for full detailed list. New medications: 1. Prednisone 60 mg p.o. daily. 2. Norvasc 2.5 mg p.o. daily instead of lisinopril 5 mg p.o. daily. 3. Protonix 40 mg p.o. daily for GI upset that the prednisone has caused. ADDITIONAL DISCHARGE INSTRUCTIONS: 1. Follow up with Hematology on Tuesday. CBC to be drawn at that time. 2. Okay to use Prilosec OTC instead of Protonix if more cost effective. Greater than 30 minutes' time was spent arranging this discharge. Patient was seen and examined by ayala kyle on the day of discharge. /[id number]/MODL
[2017-08-26 11:18] VITALS: BP 174/78
--- NOTE | 2017-08-26 14:46 | ASDISCHSUM ---
Discharge Information Plan Status:Home with No Needs Medically Cleared to Leave: Discharge Date:08/26/2017 12:45 PM CM D/C Disposition:Home, Routine, Self-Care ADT D/C Disposition:Home, Routine, Self-Care Projected Discharge Date:08/26/2017 12:45 PM Transportation at D/C:Family Discharge Delay Reason: Follow-Up Date:08/26/2017 12:45 PM Discharge Slot: Final Diagnosis: Placement Information Patient Contact Information Contact Name:ANTELMO Relationship: Address:[address] [place] [address] City:[place] Alternate Phone: [facility]/Zip Code:[place] [address] Email: Financial Information Financial Class:Medicare Primary Plan Desc:MEDICARE INPATIENT Primary Plan Number:[id number] Secondary Plan Desc:PURA GUERRERO Secondary Plan Number:[id number] Assessment Information [facility] CM Progress Note CM Note CM Note Notes: 08/24/2017 Case Management Note Pt admitted for treatment of drug induced thrombocytopenia. Met w/pt to discuss discharge needs. Pt lives independently with Jose [phone], (cell) in thier own home. They have hired a manufactured buildings supervisor to come once a week but otherwise maintain the home themselves. Both pt and her are still driving. Pt daughter Suki [phone] lives within [address] of pt[address] There are no PT or OT evals ordered at this time. Case Management d/c poc: anticipating independent with follow up as directed. Case Management available if needs change. Date Signed: 08/24/2017 12:23 PM Electronically Signed By:Kathy Kaur RN Case Management Discharge Plan Note Case Management Discharge Discharge Order Complete? Answers: Yes Patient to Obtain Answers: Independently Medications Transportation Arranged Answers: Family/Friends Discharge Comments Notes: Pt D/C home. No D/C needs identified. Independent. Date Signed: 08/26/2017 02:45 PM Electronically Signed By:Adri Batres Intervention Information Intervention Type:*Incorrect Registration Date of Service:08/24/2017 01:52 PM Patient Type:Inpatient Staff Member:RIZWAN Dixon Courtney Hours: Discipline: Severity: Comment: Intervention Type:*IM-Signed Date of Service:08/26/2017 12:25 PM Patient Type:Inpatient Staff Member:Diana Ulloa Hours: Discipline: Severity: Comment:
--- NOTE | 2017-08-26 14:47 | ASMTLACE ---
LACE Length of stay for Answers: 2 days current admission Acuity / Level of Answers: Yes Care: Did the patient have an inpatient admission? Comorbidities - select Answers: Any tumor (including all that apply lymphoma or leukemia) Mild liver or renal disease Other Notes: HTN, IBS, basal cell carcinoma, # of Emergency department Answers: 1-2 visits in the last 6 months Score: 11 Date Signed: 08/26/2017 02:46 PM Electronically Signed By:Adri Batres
== END 2017-08-26 12:45 | disposition home or self-care (01) | DRG 813 ==
LOC: OBSVTOIN 03:48 → INTOOBSV 03:48 → F3E 05:13 → F1N 21:00
PROVIDERS: ADMIT Student in an Organized Health Care Education/Training Program; ATTEND Student in an Organized Health Care Education/Training Program
DX: D69.3 Immune thrombocytopenic purpura (principal); N39.0 Urinary tract infection, site not specified; L27.0 Generalized skin eruption due to drugs and medicaments taken internally; T37.0X5A Adverse effect of sulfonamides, initial encounter; N17.9 Acute kidney failure, unspecified; I12.9 Hypertensive chronic kidney disease with stage 1 through stage 4 chronic kidney disease, or unspecified chronic kidney disease; N18.9 Chronic kidney disease, unspecified; K58.9 Irritable bowel syndrome, unspecified; Z85.3 Personal history of malignant neoplasm of breast; Z96.641 Presence of right artificial hip joint; Z96.653 Presence of artificial knee joint, bilateral
CPT/HCPCS: 96374; G0472; J1100; J1459; J7512